=== PATIENT | female | born 1965 | race Caucasian/White ===

== ENCOUNTER 2018-05-01 05:30 | Day surgery (SDC) | payer OTHER ==
[~2018-05-01] VITALS: Ht 180.3 cm; Wt 113.2 kg
[2018-05-01 06:03] VITALS: BP 149/97; PULSE 95; TEMP 98.1
[2018-05-01] MEDS ORDERED: KLOR-CON M2020 MEQ PO (06:43)
[2018-05-01] MEDS ORDERED: LO LOESTRIN FE1 TAB PO (06:45)
[2018-05-01] MEDS ORDERED: WELLBUTRIN XL300 M1 PO (06:46)
[2018-05-01] MEDS ORDERED: TOPAMAX 25MG25 M1 PO (06:46)
[2018-05-01] MEDS ORDERED: ALDACTONE 25MG25 M1 PO (06:47)
[2018-05-01] MEDS ORDERED: FLEXERIL 1010 MG/TAB PO (06:47)
[2018-05-01] MEDS ORDERED: LEVOXYL0.2 MG PO (06:48)
[2018-05-01] MEDS ORDERED: PRILOSEC 20MG20 MG PO (06:49)
[2018-05-01] MEDS ORDERED: CLARITIN 1010 MG/TAB PO (06:50)
[2018-05-01] MEDS ORDERED: PROAIR HFA0.09 MG/AC IH (06:51)
[2018-05-01] MEDS ORDERED: NORCO 325 MG-7.1 TAB PO (08:07)
[2018-05-01 08:51] VITALS: TEMP 97.1
[2018-05-01 09:00] VITALS: BP 129/83; PULSE 65
--- NOTE | 2018-05-01 09:00 | NUR ---
Patient returns to room 7 per cart from PACU and arouses to verbal stimuli. IV fluids infusing and 4x4 gauze dressing clean and dry with mesh panties in place. Temp 96.6 and room air sats 97%. Warm blankets on and is resting. Spouse in room. Siderails up x2 and call light in reach.
[2018-05-01 09:15] VITALS: BP 115/76; PULSE 76
--- NOTE | 2018-05-01 09:15 | NUR ---
Patient continues to rest without complaints of pain and spouse in room.
[2018-05-01 09:30] VITALS: BP 119/59; PULSE 63
--- NOTE | 2018-05-01 09:30 | NUR ---
Assisted up to the bathroom and is able to void and returns to room. Very nauseated with movement when returning to room.
--- NOTE | 2018-05-01 09:53 | NUR ---
Continues to complain of nausea and order for Phenergan 12.5mg obtained and given. Encouraged to rest. Spouse at side and call light in reach.
[2018-05-01 10:00] VITALS: BP 112/58; PULSE 76
--- NOTE | 2018-05-01 10:00 | NUR ---
Resting and states that her nausea is subsiding.
--- NOTE | 2018-05-01 10:10 | NUR ---
States nausea is subsiding and is wanting to go home. IV discontinued and spouse assists patient to get dressed. Provided sitz bath to take home and instructed on its use.
--- NOTE | 2018-05-01 10:23 | NUR ---
Given dismissal instructions and voices understanding of these. Provided script for [place] and follow up appointment date and time.
--- NOTE | 2018-05-01 10:30 | NUR ---
Patient dismissed to home per private vehicle driven by spouse and taken to the front door per wheelchair and assisted into car. Dismissal instructions with patient.
== END 2018-05-01 10:30 | disposition home or self-care (01) ==
LOC: SDCO 05:30 → EDBD 07:30 → SDCO 07:30
DX: K64.5 Perianal venous thrombosis (principal); K64.8 Other hemorrhoids; K64.4 Residual hemorrhoidal skin tags; D64.9 Anemia, unspecified; I10 Essential (primary) hypertension; Z86.14 Personal history of Methicillin resistant Staphylococcus aureus infection; F32.9 Major depressive disorder, single episode, unspecified; F41.9 Anxiety disorder, unspecified; K44.9 Diaphragmatic hernia without obstruction or gangrene; J45.909 Unspecified asthma, uncomplicated; E06.3 Autoimmune thyroiditis; E89.0 Postprocedural hypothyroidism; G43.909 Migraine, unspecified, not intractable, without status migrainosus; Z79.899 Other long term (current) drug therapy
CPT/HCPCS: J0360; J0690; J1100; J1885; J2405; J2550; J2704; J3010; J7120

== ENCOUNTER 2018-05-04 20:14 | Observation (INO) | payer OTHER ==
[~2018-05-04] VITALS: Ht 180.3 cm; Wt 114.8 kg
[~2018-05-04 20:14] MED LIST: ALDACTONE 25MG25 M1 PO; CLARITIN 1010 MG/TAB PO; FLEXERIL 1010 MG/TAB PO; KLOR-CON M2020 MEQ PO; LEVOXYL0.2 MG PO; LO LOESTRIN FE1 TAB PO; NORCO 325 MG-7.1 TAB PO; PRILOSEC 20MG20 MG PO; PROAIR HFA0.09 MG/AC IH; TOPAMAX 25MG25 M1 PO; WELLBUTRIN XL300 M1 PO
[2018-05-04 21:31] LABS: BASO % 0.3 % (0.0-2.0); EOS # 0.1 (0.0-0.7); EOS % 1.7 % (0-4.0); GRAN # 4.9 (1.4-6.5); GRAN % 69.3 % (42.2-75.2); HEMOGLOBIN 11.1 g/dl (12.5-16.0); LYMPH # 1.4 (1.2-3.4); LYMPH % 20.2 % (20.0-51.0); MEAN CELL VOLUME 81 fl (80.0-100.0); MEAN CORPUSCULAR HEMOGLOBIN 25 pg (27.0-31.0); MEAN CORPUSCULAR HGB CONC 31 g/dl (33.0-37.0); MEAN PLATELET VOLUME 10.4 fl (7.4-10.4); MONO # 0.6 (0.1-0.6); MONO % 8.2 % (1.7-9.3); PLATELET COUNT 285 K/mm3 (130-400); RED BLOOD COUNT 4.39 M/mm3 (4.10-5.30); REDCELL DISTRIBUTION WIDTH-CV 14.4 % (11.5-14.5)
[2018-05-04 21:32] LABS: HEMATOCRIT 35.7 % (37.0-47.0)
[2018-05-04 21:44] LABS: ALANINE AMINOTRANSFERASE 12 U/L (9-52); ALBUMIN 3.9 gm/dL (3.5-5.0); ALKALINE PHOSPHATASE 112 U/L (50-136); ANION GAP 8 mmol/L (7-16); AST,SGOT 18 U/L (15-37); BILIRUBIN,TOTAL < 0.1 mg/dL (0.0-1.0); BLOOD UREA NITROGEN 17 mg/dL (7-17); C-REACTIVE PROTEIN 4.2 mg/dL (0.0-0.9); CALCIUM 9.3 mg/dL (8.4-10.2); CARBON DIOXIDE 24 mmol/L (22-30); CHLORIDE 107 mmol/L (98-107); CREATININE, serum 0.91 (0.52-1.25); GLUCOSE 121 mg/dL (74-106); POTASSIUM 4.1 mmol/L (3.4-5.0); SODIUM 139 mmol/L (137-145); TOTAL PROTEIN 7.1 gm/dL (6.4-8.2)
[2018-05-04 23:08] VITALS: BP 134/82; PULSE 98; TEMP 98.5
[2018-05-05 03:53] VITALS: BP 127/57; PULSE 85; TEMP 98.7
--- NOTE | 2018-05-05 06:52 | NUR ---
Pt slept through the night, some C/O pain, Pt self applies the lidocaine. VS have been stable.
[2018-05-05 07:47] VITALS: BP 140/91; PULSE 88; TEMP 98
[2018-05-05 12:00] VITALS: BP 148/87; PULSE 106; TEMP 97.9
--- NOTE | 2018-05-05 13:17 | NUR ---
CARY met with the patient to discuss a discharge plan. The patient lives in [place] with her and her mother. The patient does not use any DME and she reports independence with ADLs. The patient's PCP is Dr. Erasmo Macias and the patient receives her medications from [facility] in [place]. The patient reports no difficulties obtaining her medications. The patient does not have advanced directives in the EMR. However, she was interested in obtaining a DPOA-HC form. The patient plans to return home upon discharge. There are no additional needs at this time.
--- NOTE | 2018-05-05 15:53 | NUR ---
Discharge instructions and education went over with the patient. All questions and concerns answered. IV discontinued. PRN Tramadol given for rectal pain. Patient assisted out to personal vehicle via wheelchair and surgical staff at [id number].
== END 2018-05-05 15:15 | disposition home or self-care (01) ==
LOC: COL.ER 20:14 → SURG 20:55
PROVIDERS: Emergency Medicine; ADMIT Surgery
DX: K59.00 Constipation, unspecified (principal); G89.18 Other acute postprocedural pain; I10 Essential (primary) hypertension; E06.3 Autoimmune thyroiditis; J45.909 Unspecified asthma, uncomplicated; K21.9 Gastro-esophageal reflux disease without esophagitis; Z79.899 Other long term (current) drug therapy; G43.909 Migraine, unspecified, not intractable, without status migrainosus; E89.0 Postprocedural hypothyroidism
CPT/HCPCS: G0378; J2550; J3010; J7030

== ENCOUNTER → 2018-11-27 | Outpatient (CLI) | payer OTHER | LOC: COL.RAD 08:34 | DX: M48.061 Spinal stenosis, lumbar region without neurogenic claudication (principal); M51.36 Other intervertebral disc degeneration, lumbar region; R22.9 Localized swelling, mass and lump, unspecified; M53.87 Other specified dorsopathies, lumbosacral region ==

== ENCOUNTER 2019-05-07 09:14 | Emergency (ER) | payer OTHER ==
[~2019-05-07] VITALS: Ht 180.3 cm; Wt 111.4 kg
[2019-05-07 09:47] VITALS: TEMP 98.1
[2019-05-07 10:46] LABS: BASO % 0.4 % (0.0-2.0); EOS # 0.2 (0.0-0.7); EOS % 2.3 % (0-4.0); GRAN # 5.1 (1.4-6.5); GRAN % 71.7 % (42.2-75.2); HEMATOCRIT 45.1 % (37.0-47.0); HEMOGLOBIN 14.5 g/dl (12.5-16.0); LYMPH # 1.5 (1.2-3.4); LYMPH % 20.5 % (20.0-51.0); MEAN CELL VOLUME 86 fl (80.0-100.0); MEAN CORPUSCULAR HEMOGLOBIN 28 pg (27.0-31.0); MEAN CORPUSCULAR HGB CONC 32 g/dl (33.0-37.0); MONO # 0.3 (0.1-0.6); MONO % 4.8 % (1.7-9.3); PLATELET COUNT 226 K/mm3 (130-400); RED BLOOD COUNT 5.24 M/mm3 (4.10-5.30); REDCELL DISTRIBUTION WIDTH-CV 15.2 % (11.5-14.5)
[2019-05-07 10:52] LABS: ALANINE AMINOTRANSFERASE 14 U/L (4-34); ALBUMIN 4.6 gm/dL (3.5-5.0); ALKALINE PHOSPHATASE 161 U/L (50-136); ANION GAP 10 mmol/L (7-16); AST,SGOT 20 U/L (15-37); BILIRUBIN,TOTAL 0.5 mg/dL (0.0-1.0); BLOOD UREA NITROGEN 12 mg/dL (7-17); CALCIUM 9.3 mg/dL (8.4-10.2); CARBON DIOXIDE 25 mmol/L (22-30); CHLORIDE 106 mmol/L (98-107); CREATININE, serum 0.91 (0.52-1.25); GLUCOSE 96 mg/dL (74-106); POTASSIUM 4.1 mmol/L (3.4-5.0); SODIUM 141 mmol/L (137-145); TOTAL PROTEIN 7.9 gm/dL (6.4-8.2)
[2019-05-07 11:03] LABS: TROPONIN-I < 0.012 ng/mL (0.000-0.035)
[2019-05-07 14:07] VITALS: BP 120/95; PULSE 81
== END 2019-05-07 14:25 | disposition home or self-care (01) ==
LOC: COL.ER 09:14
PROVIDERS: Physician Assistant
DX: R07.89 Other chest pain (principal); M62.830 Muscle spasm of back; I10 Essential (primary) hypertension; K21.9 Gastro-esophageal reflux disease without esophagitis; J45.909 Unspecified asthma, uncomplicated; E06.3 Autoimmune thyroiditis; E03.9 Hypothyroidism, unspecified
CPT/HCPCS: J2270; J2405; J7030